=== PATIENT | female | born 1955 | race Hispanic/Latino ===

== ENCOUNTER 2018-06-19 10:40 | Outpatient (CLI) | payer OTHER ==
[2018-06-19 18:01] LABS: Bilirubin Negative (Negative); Blood, Urine Negative (Negative); Clarity CLEAR (Clear); Glucose, Urine (Dipstick) Negative (Negative); Leukocyte Negative (Negative); Nitrite Negative (Negative); Protein, Urine (Dipstick) Negative (Neg-Trace); Specific Gravity, Urine 1.012 (1.002-1.036); Urobilinogen 0.2 mg/dL (0.2-1.0); pH, Urine 7.5 (5.0-9.0)
[2018-06-19 18:06] LABS: ALT (SGPT) 23 U/L (8-55); AST (SGOT) 27 U/L (5-34); Alkaline Phosphatase 59 U/L (40-150); Anion Gap 13 mmol/L (10-20); BUN (Urea Nitrogen) 12 mg/dL (9.8-20.1); Bilirubin, Total 0.5 mg/dL (0.2-1.2); Calc. Creatinine Clearance 0 mL/min (70-130); Calcium 9.2 mg/dL (7.8-10.44); Carbon Dioxide 29 mmol/L (23-31); Chloride 103 mmol/L (98-107); Estimated GFR-MDRD 87; Globulin 3.5 g/dL (2.4-3.5); Glucose 89 mg/dL (80-115); Lipase 43 U/L (8-78); Potassium 4.1 mmol/L (3.5-5.1); Protein, Total 7.5 g/dL (6.0-8.3); Sodium 141 mmol/L (136-145)
[2018-06-19 18:13] LABS: #Eosinphils 0.1 thou/uL (0.0-0.7); #Lymphocytes 1.3 thou/uL (1.20-3.40); #Monocytes 0.3 thou/uL (0.11-0.59); #Neutrophils 1.3 thou/uL (1.40-6.50); %Basophils 1.2 % (0.0-1.0); %Eosinophils 3.7 % (0.0-10.0); %Lymphocytes 43.1 % (21.0-51.0); %Monocytes 9.1 % (0.0-10.0); Hemoglobin 9.4 g/dL (12.0-16.0); Mean Corpuscular HGB CONC 35.1 g/dL (32.0-36.0); Mean Corpuscular Hemoglobin 43.3 pg (27.0-31.0); Mean Platelet Volume 7.8 fL (7.4-10.4); Platelet Count 232 thou/uL (130-400); RBC Distribution Width 13.8 % (11.5-14.5); Red Blood Cell (RBC) Count 2.17 mill/uL (4.20-5.40); White Blood Cell (WBC) Count 3.1 thou/uL (4.8-10.8)
[2018-06-19 18:25] LABS: Bacteria/HPF Rare-Few HPF (None Seen); Hyaline Casts/LPF NONE SEEN LPF (0-3 Hyaline); RBC/HPF None Seen HPF (0-3); Squamous Epithelial 0-3 HPF (0-3)
[2018-06-19 18:26] LABS: Hemoglobin A1c 4.9 % (4.0-6.0)
[2018-06-19 18:55] LABS: MDiff Complete? YES; Macrocytosis SLIGHT = 6-15 cells (100X) (0-5/hpf); Ovalocytes SLIGHT = 2-5 cells (100X) (0-1/hpf); PLT Morphology Comment Appears Adequate; Polychromasia SLIGHT = 2-3 cells (100X) (0-2/hpf)
== END 2018-06-19 10:41 | disposition home or self-care (01) ==
LOC: BURLABSP 10:40
PROVIDERS: ATTEND Family Medicine
DX: N39.0 Urinary tract infection, site not specified (principal); R10.13 Epigastric pain; E11.9 Type 2 diabetes mellitus without complications
CPT/HCPCS: 80053; 81001; 83036; 83690; 84443; 85025

== ENCOUNTER 2018-06-26 09:05 | Outpatient (CLI) | payer OTHER ==
--- NOTE | 2018-06-27 07:35 | ULT ---
ABDOMINAL ULTRASOUND: 06/26/18 Ultrasonography of the abdomen was performed for evaluation for right upper quadrant pain. The liver and spleen were normal in size. The liver appeared normal internally. Portal venous flow is towards t he liver as expected. The spleen is normal in appearance. The pancreas was partially obscured by gas, but the visible areas seem normal. The gallbladder contains no signs of stones or wall thickening. T here is a small amount of sludge in it. The common bile duct is a normal 4 mm in caliber. The right kidney was 12.1 cm long and the left kidney was 11.5 cm. Both appear normal. The aorta and inferior vena cava appear normal. IMPRESSION: Minimal sludge in the gallbladder. Exam otherwise unremarkable. POS: HOME
== END 2018-06-26 09:06 | disposition home or self-care (01) ==
LOC: BURULT 09:05
PROVIDERS: ATTEND Family Medicine
DX: R10.13 Epigastric pain (principal); K82.8 Other specified diseases of gallbladder
CPT/HCPCS: 76700